=== PATIENT | female | born 1975 | race Caucasian/White ===

== ENCOUNTER 2017-09-12 12:36 | Emergency (ER) | payer OTHER ==
[~2017-09-12] VITALS: Ht 172.7 cm; Wt 123.1 kg
[~2017-09-12 12:36] MED LIST: Advil Migraine PO; CLONAZEPAM0.5 MG PO; Motrin PO; NORCO 5/3251 TABLET PO; Percocet 5/325,Endoc PO; ZOFRAN4 MG PO; ZOLOFT50 M1 PO
[2017-09-12] MEDS ORDERED: FLEXERIL10 MG PO (14:28)
[2017-09-12] MEDS ORDERED: MOTRIN800 MG PO (14:28)
[2017-09-12] MEDS ORDERED: LIDODERM 5% P1 PATCH TD (14:28)
[2017-09-12 14:45] VITALS: BP 157/100
== END 2017-09-12 14:47 | disposition home or self-care (01) ==
LOC: EME 12:36
DX: M62.830 Muscle spasm of back (principal); M54.2 Cervicalgia; R51 Headache; M54.6 Pain in thoracic spine; V49.40XA Driver injured in collision with unspecified motor vehicles in traffic accident, initial encounter; Y92.410 Unspecified street and highway as the place of occurrence of the external cause
CPT/HCPCS: 72040; 72070; 99281; 99284